=== PATIENT | female | born 1965 | race Hispanic/Latino ===

== ENCOUNTER 2017-12-17 08:49 | Inpatient (IN) | payer MEDICAID ==
[2017-12-13 11:14] VITALS: BP 100/87
[2017-12-13 11:14] LABS: CREATININE 0.7 mg/dL (0.5-1.5); POTASSIUM 3.6 mmol/L (3.5-5.1)
[2017-12-13 11:16] LABS: BASOPHILS % (AUTO) 0.5 % (0.0-5.0); EOSINOPHILS % (AUTO) 0.8 % (0.0-8.0); HEMATOCRIT 38.8 % (36-48); LYMPHOCYTES % (AUTO) 36.2 % (21.0-51.0); MEAN CORPUSCULAR HEMOGLOBIN 31.7 pg (27.0-33.0); MEAN CORPUSCULAR HGB CONC 33.5 g/dL (32.0-36.0); MEAN CORPUSCULAR VOLUME 94.5 fL (79-99); MONOCYTES % (AUTO) 8.4 % (3.0-13.0); NEUTROPHILS % (AUTO) 54.1 % (40.0-77.0); PLATELET COUNT (AUTO) 258 K/uL (130-400); RED CELL DISTRIBUTION WIDTH 15.2 % (11.0-15.5); WHITE BLOOD COUNT (AUTO) 5.6 K/uL (4.8-10.8)
[2017-12-13 11:43] LABS: INR 0.98 (0.85-1.15); PARTIAL THROMBOPLASTIN TIME 24.2 SEC (26.3-35.5); PROTHROMBIN TIME 10.3 SEC (9.6-11.6)
[2017-12-14] MEDS: CEFAZOLIN SODIUM 1 GM VIAL IVP SCH (10:00)
[~2017-12-17] VITALS: Ht 157.5 cm; Wt 102.1 kg
[2017-12-17] VITALS (20 sets, daily range): BP systolic 119–183; BP diastolic 68–94
[~2017-12-17 08:49] MED LIST: ATOR20TA65 PO; DOCU100C19 PO; ESOM40CA PO; FENT100PAT TD; HYDR15SO7 PO; LORA1TAB3 PO; PRAM0.5T3 PO; PREG75 PO; TIZA4TAB4 PO; ZOLP10TA2 PO
[2017-12-17] MEDS ORDERED: LACTATED RINGERS 1000ML 1,000 ML IV ONE ×2 (09:07→14:37)
[2017-12-17] MEDS: CEFAZOLIN SODIUM 1 GM VIAL IVP SCH ×2 (10:20→18:01)
[2017-12-17] MEDS ORDERED: NEOSTIGMINE METHYLSULFATE 1MG/ML IV ONE (10:24)
[2017-12-17] MEDS ORDERED: DEXAMETHASONE SOD PHOSPHATE 10MG/ML 1ML VIAL ONE (10:24)
[2017-12-17] MEDS ORDERED: GLYCOPYRROLATE 0.2 MG/ML 5 ML VIAL ONE (10:24)
[2017-12-17] MEDS ORDERED: ONDANSETRON HCL 4 MG/2 ML VIAL ONE (10:24)
[2017-12-17] MEDS ORDERED: SUCCINYLCHOLINE 200MG/10ML SYR ONE (10:24)
[2017-12-17] MEDS ORDERED: MIDAZOLAM HCL 1 MG/ML 2ML VIAL ONE ×2 (10:24→12:57)
[2017-12-17] MEDS ORDERED: LIDOCAINE PF 2% 5ML ABBOJECT ONE (10:24)
[2017-12-17] MEDS ORDERED: FENTANYL CITRATE PF 50 MCG/1 ML 2ML VIAL ONE (10:25)
[2017-12-17] MEDS ORDERED: PROPOFOL 10 MG/ML 20ML VIAL IV ONE ×2 (10:25→11:34)
[2017-12-17] MEDS ORDERED: MEPERIDINE-PF 50 MG/ML SYG ONE ×2 (12:53→13:29)
[2017-12-17] MEDS ORDERED: MORPHINE SULFATE 10 MG/ML 1ML SYG ONE (13:08)
[2017-12-17] MEDS ORDERED: PROMETHAZINE HCL 25 MG/ML 1ML AMPULE IM ONE (13:30)
[2017-12-17] MEDS ORDERED: HYDROMORPHONE PCA 10 MG/50 ML 50 ML IV ONE (14:54)
[2017-12-17] MEDS ORDERED: ONDANSETRON HCL 4 MG/2 ML VIAL IVP PRN (15:15)
[2017-12-17] MEDS: LACTATED RINGERS 1000ML 1,000 ML IV SCH ×2 (15:15→21:48)
[2017-12-17] MEDS ORDERED: MORPHINE SULFATE 4 MG/1ML SYG IVP PRN (15:15)
[2017-12-17] MEDS: HYDROMORPHONE PCA 10MG/50 ML ( 0.2 MG/ML ) IV PRN (15:15)
[2017-12-17] MEDS ORDERED: NALOXONE HCL 0.4 MG/1 ML ML IVP PRN (15:15)
[2017-12-17] MEDS ORDERED: FENTANYL 100 MCG/HR PATCH TD SCH (15:30)
[2017-12-17] MEDS ORDERED: TIZANIDINE HCL 2 MG TABLET PO PRN (15:30)
[2017-12-17] MEDS ORDERED: HYDROCODONE/ACETAMINOPHEN 7.5/325 MG 15 ML UDCUP PO PRN (15:30)
[2017-12-17] MEDS: PREGABALIN 75 MG CAPSULE PO SCH (20:15)
[2017-12-17] MEDS: DOCUSATE SODIUM 100 MG CAP PO SCH (20:16)
[2017-12-17] MEDS: LORAZEPAM 1 MG TABLET PO SCH (20:16)
[2017-12-17] MEDS ORDERED: ZOLPIDEM TARTRATE 5 MG TAB PO SCH (21:00)
[2017-12-17] MEDS ORDERED: ATORVASTATIN CALCIUM 20 MG TABLET PO SCH (21:00)
[2017-12-17] MEDS ORDERED: PRAMIPEXOLE DI-HCL 0.25 MG TABLET PO SCH (21:00)
[2017-12-18] MEDS: CEFAZOLIN SODIUM 1 GM VIAL IVP SCH (02:06)
[2017-12-18] MEDS: HYDROMORPHONE PCA 10MG/50 ML ( 0.2 MG/ML ) IV PRN (02:50)
[2017-12-18 03:25] VITALS: BP 142/78
[2017-12-18] MEDS: LACTATED RINGERS 1000ML 1,000 ML IV SCH (07:15)
[2017-12-18 07:54] VITALS: BP 128/80
[2017-12-18] MEDS ORDERED: PANTOPRAZOLE SODIUM 40 MG TABLET.DR PO SCH (09:00)
[2017-12-18] MEDS ORDERED: LEVOFLOXACIN 750 MG TABLET PO SCH (09:00)
[2017-12-18] MEDS: DOCUSATE SODIUM 100 MG CAP PO SCH (09:31)
[2017-12-18] MEDS: LORAZEPAM 1 MG TABLET PO SCH (09:31)
[2017-12-18] MEDS: PREGABALIN 75 MG CAPSULE PO SCH (09:32)
[2017-12-18 11:25] VITALS: BP 127/87
== END 2017-12-18 15:30 | disposition home or self-care (01) | DRG 364 ==
LOC: DAH 08:49 → DAHIP 08:50 → DAH 08:50 → 4AH 14:00 → 4BH 14:48
PROVIDERS: ADMIT Surgery; ATTEND Surgery
PROC: 0W0F0ZZ Alteration of Abdominal Wall, Open Approach (ICD-10-PCS; principal; 2017-12-17 10:25)
DX: M79.3 Panniculitis, unspecified (principal); E66.01 Morbid (severe) obesity due to excess calories; E11.9 Type 2 diabetes mellitus without complications; Z79.899 Other long term (current) drug therapy; Z90.49 Acquired absence of other specified parts of digestive tract; Z98.51 Tubal ligation status; Z98.84 Bariatric surgery status; Z68.41 Body mass index [BMI] 40.0-44.9, adult
CPT/HCPCS: 36415; 80048; 84703; 85025; 85610; 85730; 86850; 86900; 86901; A4218; A4344; J0330; J0690; J1100; J1170; J2001; J2175; J2250; J2270; J2405; J2550; J2704; J2710; J3010; J3490; J7120

== ENCOUNTER 2018-01-18 15:20 | Inpatient (IN) | payer MEDICAID ==
[~2018-01-18] VITALS: Ht 157.5 cm; Wt 100.0 kg
[2018-01-18 16:37] LABS: BASOPHILS % (AUTO) 0.2 % (0.0-5.0); EOSINOPHILS % (AUTO) 1.6 % (0.0-8.0); HEMATOCRIT 29.5 % (36-48); LYMPHOCYTES % (AUTO) 13.5 % (21.0-51.0); MEAN CORPUSCULAR HEMOGLOBIN 29.3 pg (27.0-33.0); MEAN CORPUSCULAR HGB CONC 33.8 g/dL (32.0-36.0); MEAN CORPUSCULAR VOLUME 86.7 fL (79-99); MONOCYTES % (AUTO) 7.4 % (3.0-13.0); NEUTROPHILS % (AUTO) 77.3 % (40.0-77.0); PLATELET COUNT (AUTO) 450 K/uL (130-400); RED CELL DISTRIBUTION WIDTH 15.9 % (11.0-15.5); WHITE BLOOD COUNT (AUTO) 9.4 K/uL (4.8-10.8)
[2018-01-18 16:51] LABS: CARBON DIOXIDE 31 mmol/L (21-32); CHLORIDE 103 mmol/L (101-111); CREATININE 0.6 mg/dL (0.5-1.5); GLOMERULAR FILTR. RATE CALC 111 mL/min (>60); GLUCOSE,RANDOM 118 mg/dL (70-105); POTASSIUM 3.3 mmol/L (3.5-5.1); SODIUM SERUM 141 mmol/L (136-145); UREA NITROGEN, BLOOD 10 mg/dL (7-18)
[2018-01-18 16:53] LABS: INR 0.95 (0.85-1.15); PARTIAL THROMBOPLASTIN TIME 31.8 SEC (26.3-35.5)
[2018-01-18] MEDS ORDERED: ONDANSETRON HCL MDV 20ML 2 MG/ML VIAL ONE (16:54)
[2018-01-18] MEDS ORDERED: SODIUM CHLORIDE 0.9% 1000ML 3,000 ML IV ONE (16:54)
[2018-01-18] MEDS ORDERED: MORPHINE SULFATE 4 MG/1ML SYG ONE (16:55)
[2018-01-18] MEDS ORDERED: KETOROLAC TROMETHAMINE 30MG/ML ONE (16:55)
[2018-01-18 17:08] LABS: ALANINE AMINOTRANSFERASE 16 U/L (12-78); ALBUMIN 2.8 g/dL (3.5-5.0); ASPARTATE AMINOTRANSFERASE 18 U/L (10-37); BILIRUBIN,TOTAL 0.4 mg/dL (0.2-1.0); CREATINE KINASE MB < 0.5 ng/mL (0.5-3.6); CREATINE KINASE, TOTAL 42 U/L (21-232); MYOGLOBIN 15 ng/mL (10-92); TOTAL PROTEIN, SERUM 7.9 g/dL (6.0-8.3); TROPONIN I < 0.04 ng/mL (0.00-0.06)
[2018-01-18] MEDS ORDERED: MEROPENEM 1 GM VIAL ONE (17:09)
[2018-01-18] MEDS ORDERED: SODIUM CHLORIDE 0.9% 50 ML IV ONE (17:10)
[2018-01-18] MEDS ORDERED: POTASSIUM BICARB/CIT AC 25 MEQ TABLET.EFF ONE (17:10)
[2018-01-18] MEDS ORDERED: IOPAMIDOL-370 75 ML VIAL IV ONE (18:35)
[2018-01-18 20:36] LABS: APPEARANCE,URINE Clear (CLEAR); BILIRUBIN,URINE Negative (NEGATIVE); COLOR,URINE Yellow (YELLOW); GLUCOSE, URINE (UA) Negative (NEGATIVE); KETONES,URINE Negative (NEGATIVE); LEUKOCYTE ESTERASE ,URINE Small (NEGATIVE); NITRATE,URINE Negative (NEGATIVE); OCCULT BLOOD,URINE Negative (NEGATIVE); PH,URINE 6.5 (5.0-8.0); PROTEIN,URINE Negative (NEGATIVE)
[2018-01-18 20:43] LABS: BACTERIA,URINE None Seen /HPF (None Seen); RBC,URINE None Seen /HPF (0-1); WBC,URINE 0-1 /HPF (0-1)
[2018-01-18 23:20] VITALS: BP 126/68
[2018-01-18] MEDS ORDERED: LACTATED RINGERS 1000ML 1,000 ML IV SCH (23:45)
[2018-01-18] MEDS ORDERED: ONDANSETRON HCL 4 MG/2 ML VIAL IVP PRN (23:45)
[2018-01-19] VITALS (21 sets, daily range): BP systolic 111–153; BP diastolic 59–86
[2018-01-19] MEDS ORDERED: PIPERACILLIN SODIUM/TAZOBACTAM 3.375 GM VIAL IV SCH
[2018-01-19] MEDS: ZOLPIDEM TARTRATE 5 MG TAB PO PRN (00:13)
[2018-01-19] MEDS: MORPHINE SULFATE 4 MG/1ML SYG IVP PRN ×3 (00:30→08:20)
[2018-01-19] MEDS: MEROPENEM 1 GM VIAL IVP SCH ×3 (01:18→17:33)
[2018-01-19] MEDS ORDERED: ONDANSETRON HCL MDV 20ML 2 MG/ML VIAL IVP PRN (08:30)
[2018-01-19] MEDS ORDERED: SCOPOLAMINE HYDROBROMIDE 1 EACH ADH..PATCH TD ONE (10:59)
[2018-01-19] MEDS ORDERED: GLYCOPYRROLATE 0.2 MG/ML 5 ML VIAL ONE (11:12)
[2018-01-19] MEDS ORDERED: DEXAMETHASONE SOD PHOSPHATE 10MG/ML 1ML VIAL ONE (11:12)
[2018-01-19] MEDS ORDERED: SUCCINYLCHOLINE 200MG/10ML SYR ONE (11:13)
[2018-01-19] MEDS ORDERED: FENTANYL CITRATE PF 50 MCG/1 ML 2ML VIAL ONE (11:13)
[2018-01-19] MEDS ORDERED: MIDAZOLAM HCL 1 MG/ML 2ML VIAL ONE (11:13)
[2018-01-19] MEDS ORDERED: LIDOCAINE PF 2% 5ML ABBOJECT ONE (11:13)
[2018-01-19] MEDS ORDERED: PROPOFOL 10 MG/ML 20ML VIAL IV ONE ×2 (11:13→12:10)
[2018-01-19] MEDS ORDERED: ONDANSETRON HCL 4 MG/2 ML VIAL IVP PRN (12:00)
[2018-01-19] MEDS ORDERED: HYDROCODONE/ACETAMINOPHEN 5/325 MG TAB PO PRN (12:00)
[2018-01-19] MEDS ORDERED: IPRATROPIUM/ALBUTEROL SULFATE 3 ML SOLUTION IH ONE (12:30)
[2018-01-19] MEDS: MEPERIDINE-PF 25 MG/ML SYG IV PRN ×2 (12:39→12:59)
[2018-01-19] MEDS ORDERED: ZOSYN 3.375GM+NS 50ML 50 ML IV SCH (13:00)
[2018-01-19] MEDS ORDERED: BACL10TA PO (15:49)
[2018-01-19] MEDS ORDERED: LORA1TAB3 PO (15:49)
[2018-01-19] MEDS ORDERED: IBUP-2070 PO (15:49)
[2018-01-19] MEDS ORDERED: PREG75 PO (15:49)
[2018-01-19] MEDS: LACTATED RINGERS 1000ML 1,000 ML IV SCH (20:17)
[2018-01-20] VITALS (7 sets, daily range): BP systolic 95–112; BP diastolic 52–62
[2018-01-20] MEDS: MEROPENEM 1 GM VIAL IVP SCH ×3 (00:24→16:59)
[2018-01-20] MEDS: MORPHINE SULFATE 4 MG/1ML SYG IVP PRN ×4 (00:26→19:55)
[2018-01-20 05:37] LABS: BASOPHILS % (AUTO) 0.2 % (0.0-5.0); MEAN CORPUSCULAR HEMOGLOBIN 29.7 pg (27.0-33.0); MEAN CORPUSCULAR HGB CONC 34.3 g/dL (32.0-36.0); MEAN CORPUSCULAR VOLUME 86.5 fL (79-99); MONOCYTES % (AUTO) 6.7 % (3.0-13.0); NEUTROPHILS % (AUTO) 81.1 % (40.0-77.0); PLATELET COUNT (AUTO) 396 K/uL (130-400); RED BLOOD CELL COUNT(AUTO) 2.89 MIL/uL (4.00-5.50); RED CELL DISTRIBUTION WIDTH 16.2 % (11.0-15.5); WHITE BLOOD COUNT (AUTO) 7.8 K/uL (4.8-10.8)
[2018-01-20] MEDS: LACTATED RINGERS 1000ML 1,000 ML IV SCH ×4 (08:56→11:27)
[2018-01-20] MEDS: MEPERIDINE-PF 25 MG/ML SYG IV PRN ×3 (08:56→08:58)
[2018-01-20] MEDS: ZOLPIDEM TARTRATE 5 MG TAB PO PRN (21:04)
[2018-01-21] MEDS: MEROPENEM 1 GM VIAL IVP SCH ×2 (00:43→09:58)
[2018-01-21 03:00] VITALS: BP 104/48
[2018-01-21 06:18] LABS: BASOPHILS % (AUTO) 0.3 % (0.0-5.0); EOSINOPHILS % (AUTO) 0.4 % (0.0-8.0); HEMATOCRIT 24.7 % (36-48); LYMPHOCYTES % (AUTO) 22.3 % (21.0-51.0); MEAN CORPUSCULAR HEMOGLOBIN 28.1 pg (27.0-33.0); MEAN CORPUSCULAR HGB CONC 32.6 g/dL (32.0-36.0); MEAN CORPUSCULAR VOLUME 86.1 fL (79-99); MONOCYTES % (AUTO) 7.5 % (3.0-13.0); NEUTROPHILS % (AUTO) 69.5 % (40.0-77.0); PLATELET COUNT (AUTO) 427 K/uL (130-400); RED BLOOD CELL COUNT(AUTO) 2.87 MIL/uL (4.00-5.50); RED CELL DISTRIBUTION WIDTH 16.3 % (11.0-15.5)
[2018-01-21 09:11] VITALS: BP 90/48
[2018-01-21 12:46] VITALS: BP 111/61
== END 2018-01-21 15:09 | disposition home health service (06) | DRG 364 ==
LOC: EDH 15:20 → OBSVTOIN 15:21 → 4CH 15:21 → INTOOBSV 15:21
PROVIDERS: ADMIT Surgery; ATTEND Surgery
PROC: 0W9F0ZZ Drainage of Abdominal Wall, Open Approach (ICD-10-PCS; principal; 2018-01-19 11:30)
DX: L02.211 Cutaneous abscess of abdominal wall (principal); E66.01 Morbid (severe) obesity due to excess calories; E78.5 Hyperlipidemia, unspecified; Z68.41 Body mass index [BMI] 40.0-44.9, adult
CPT/HCPCS: 36415; 71045; 74177; 80053; 81001; 82550; 82553; 83605; 83874; 84484; 85025; 85610; 85730; 87040; 87070; 87076; 87088; 87186; 87205; 93005; A4218; J0330; J1100; J1885; J2001; J2175; J2185; J2250; J2270; J2543; J2704; J3010; J3490; J7030; J7120; Q9967

== ENCOUNTER 2018-04-03 12:43 | Observation (INO) | payer MEDICAID ==
[~2018-04-03 12:43] MED LIST changes: +BACL10TA PO; +IBUP-2070 PO
[2018-04-03 13:28] LABS: BASOPHILS % (AUTO) 0.5 % (0.0-5.0); HEMATOCRIT 29.2 % (36-48); LYMPHOCYTES % (AUTO) 33.9 % (21.0-51.0); MEAN CORPUSCULAR HGB CONC 32.2 g/dL (32.0-36.0); MEAN CORPUSCULAR VOLUME 74.4 fL (79-99); MONOCYTES % (AUTO) 6.8 % (3.0-13.0); NEUTROPHILS % (AUTO) 56.8 % (40.0-77.0); NUCLEATED RED BLOOD CELLS 0.1 % (0.0-0.19); PLATELET COUNT (AUTO) 344 K/uL (130-400); RED BLOOD CELL COUNT(AUTO) 3.93 MIL/uL (4.00-5.50); RED CELL DISTRIBUTION WIDTH 17.4 % (11.0-15.5); WHITE BLOOD COUNT (AUTO) 5.9 K/uL (4.8-10.8)
[2018-04-03 13:37] LABS: CREATININE 0.6 mg/dL (0.5-1.5); POTASSIUM 3.6 mmol/L (3.5-5.1)
[2018-04-03 13:43] LABS: ALBUMIN 3.3 g/dL (3.5-5.0); BILIRUBIN,TOTAL 0.1 mg/dL (0.2-1.0); TOTAL PROTEIN, SERUM 7.9 g/dL (6.0-8.3)
[2018-04-03] MEDS ORDERED: IOPAMIDOL-370 75 ML VIAL IV ONE (13:45)
[2018-04-03] MEDS ORDERED: HYDROCODONE/ACETAMINOPHEN 10/325 MG TAB ONE (14:12)
[2018-04-03] MEDS ORDERED: AMPICILLIN SODIUM/SULBACTAM NA 1.5GM VIAL ONE (16:01)
[2018-04-03] MEDS ORDERED: VANCOMYCIN 1GM+NS 250ML 250 ML IV ONE (17:55)
[2018-04-03] MEDS ORDERED: MORPHINE SULFATE 2 MG/ML 1ML SYG ONE (18:02)
[2018-04-03] MEDS ORDERED: ONDANSETRON HCL 4 MG/2 ML VIAL ONE (18:02)
== END 2018-04-03 18:25 | disposition home or self-care (01) ==
LOC: EDH 12:43 → EDHIP 12:44
PROVIDERS: ADMIT Family Medicine; ATTEND Family Medicine
DX: G89.18 Other acute postprocedural pain (principal); E66.01 Morbid (severe) obesity due to excess calories; E78.5 Hyperlipidemia, unspecified; F41.9 Anxiety disorder, unspecified; G89.29 Other chronic pain; Z80.3 Family history of malignant neoplasm of breast; Z82.0 Family history of epilepsy and other diseases of the nervous system; Z82.3 Family history of stroke; Z82.5 Family history of asthma and other chronic lower respiratory diseases; Z83.3 Family history of diabetes mellitus; Z90.49 Acquired absence of other specified parts of digestive tract; Z98.84 Bariatric surgery status
CPT/HCPCS: 36415; 74177; 80053; 85025; 99285; G0378 ×6; J0295; J2405; J3370; Q9967

== ENCOUNTER 2018-04-11 07:15 | Observation (INO) | payer MEDICAID ==
[2018-04-10 14:09] VITALS: BP 140/80
[2018-04-10 15:09] LABS: BASOPHILS % (AUTO) 0.6 % (0.0-5.0); EOSINOPHILS % (AUTO) 2.7 % (0.0-8.0); HEMATOCRIT 30.6 % (36-48); MEAN CORPUSCULAR HEMOGLOBIN 23.7 pg (27.0-33.0); MEAN CORPUSCULAR HGB CONC 31.5 g/dL (32.0-36.0); MEAN CORPUSCULAR VOLUME 75.4 fL (79-99); MONOCYTES % (AUTO) 5.6 % (3.0-13.0); NEUTROPHILS % (AUTO) 66.1 % (40.0-77.0); NUCLEATED RED BLOOD CELLS 0.1 % (0.0-0.19); PLATELET COUNT (AUTO) 368 K/uL (130-400); RED BLOOD CELL COUNT(AUTO) 4.06 MIL/uL (4.00-5.50); RED CELL DISTRIBUTION WIDTH 18.1 % (11.0-15.5); WHITE BLOOD COUNT (AUTO) 7.5 K/uL (4.8-10.8)
[2018-04-10 15:17] LABS: CREATININE 0.7 mg/dL (0.5-1.5); POTASSIUM 3.8 mmol/L (3.5-5.1)
[~2018-04-11] VITALS: Ht 160 cm; Wt 93.1 kg
[2018-04-11] VITALS (25 sets, daily range): BP systolic 104–132; BP diastolic 45–78
[~2018-04-11 07:15] MED LIST changes: -BACL10TA PO; +CEFAZOLIN SODIUM 1 GM VIAL IVP SCH
[2018-04-11] MEDS ORDERED: SODIUM CHLORIDE 0.9% 1000ML 1,000 ML IV ONE (07:57)
[2018-04-11] MEDS ORDERED: DEXAMETHASONE SOD PHOSPHATE 10MG/ML 1ML VIAL ONE (07:58)
[2018-04-11] MEDS ORDERED: GLYCOPYRROLATE 0.2 MG/ML 5 ML VIAL ONE (07:58)
[2018-04-11] MEDS ORDERED: NEOSTIGMINE 5MG/5ML SYR IV ONE (07:58)
[2018-04-11] MEDS ORDERED: ONDANSETRON HCL 4 MG/2 ML VIAL ONE (07:58)
[2018-04-11] MEDS ORDERED: LIDOCAINE PF 2% 5ML ABBOJECT ONE (07:58)
[2018-04-11] MEDS ORDERED: PROPOFOL 10 MG/ML 20ML VIAL IV ONE (07:59)
[2018-04-11] MEDS ORDERED: MIDAZOLAM HCL 1 MG/ML 2ML VIAL ONE (07:59)
[2018-04-11] MEDS ORDERED: FENTANYL CITRATE PF 50 MCG/1 ML 2ML VIAL ONE (07:59)
[2018-04-11] MEDS ORDERED: ACETAMINOPHEN 325 MG TAB PO PRN (09:00)
[2018-04-11] MEDS: ENOXAPARIN SODIUM 40 MG/0.4 ML SYRINGE SQ SCH (09:00)
[2018-04-11] MEDS ORDERED: INSULIN HUMULIN R 100 UNIT/ML 3ML SQ PRN (09:00)
[2018-04-11] MEDS ORDERED: ONDANSETRON HCL 4 MG/2 ML VIAL IVP PRN (09:00)
[2018-04-11] MEDS ORDERED: MEPERIDINE-PF 25 MG/ML SYG ONE ×2 (09:04→09:30)
[2018-04-11] MEDS: PANTOPRAZOLE SODIUM 40 MG TABLET.DR PO SCH (09:11)
[2018-04-11] MEDS ORDERED: LORAZEPAM 1 MG TABLET PO PRN (09:15)
[2018-04-11] MEDS: HYDROCODONE/ACETAMINOPHEN 7.5/325 MG 15 ML UDCUP PO PRN ×2 (12:02→18:35)
[2018-04-11] MEDS: IBUPROFEN 600 MG TABLET PO PRN (17:48)
[2018-04-11] MEDS ORDERED: FENTANYL 100 MCG/HR PATCH TD SCH (18:45)
[2018-04-11] MEDS: PREGABALIN 75 MG CAPSULE PO SCH (20:16)
[2018-04-11] MEDS: MORPHINE SULFATE 2 MG/ML 1ML SYG IVP PRN (20:30)
[2018-04-11] MEDS ORDERED: TIZANIDINE HCL 2 MG TABLET PO SCH (21:00)
[2018-04-11] MEDS ORDERED: ATORVASTATIN CALCIUM 20 MG TABLET PO SCH (21:00)
[2018-04-11] MEDS ORDERED: ZOLPIDEM TARTRATE 5 MG TAB PO SCH (21:00)
[2018-04-11] MEDS ORDERED: PRAMIPEXOLE DI-HCL 0.25 MG TABLET PO SCH (21:00)
[2018-04-12 00:09] VITALS: BP 107/66
[2018-04-12] MEDS: MORPHINE SULFATE 2 MG/ML 1ML SYG IVP PRN ×3 (02:22→14:22)
[2018-04-12 03:55] VITALS: BP 112/64
[2018-04-12 05:51] LABS: BASOPHILS % (AUTO) 0.7 % (0.0-5.0); EOSINOPHILS % (AUTO) 2.4 % (0.0-8.0); HEMATOCRIT 26.3 % (36-48); MEAN CORPUSCULAR HEMOGLOBIN 24.3 pg (27.0-33.0); MEAN CORPUSCULAR HGB CONC 32.6 g/dL (32.0-36.0); MEAN CORPUSCULAR VOLUME 74.6 fL (79-99); MONOCYTES % (AUTO) 7.9 % (3.0-13.0); PLATELET COUNT (AUTO) 297 K/uL (130-400); RED BLOOD CELL COUNT(AUTO) 3.53 MIL/uL (4.00-5.50); WHITE BLOOD COUNT (AUTO) 6.6 K/uL (4.8-10.8)
[2018-04-12 06:01] LABS: CREATININE 0.6 mg/dL (0.5-1.5); POTASSIUM 3.9 mmol/L (3.5-5.1)
[2018-04-12 08:02] VITALS: BP 132/83
[2018-04-12] MEDS ORDERED: DOCUSATE SODIUM 100 MG CAP PO SCH (09:00)
[2018-04-12] MEDS: PANTOPRAZOLE SODIUM 40 MG TABLET.DR PO SCH (09:24)
[2018-04-12] MEDS: IBUPROFEN 600 MG TABLET PO PRN (09:24)
[2018-04-12] MEDS: PREGABALIN 75 MG CAPSULE PO SCH (09:25)
[2018-04-12] MEDS: ENOXAPARIN SODIUM 40 MG/0.4 ML SYRINGE SQ SCH (09:27)
[2018-04-12 11:36] VITALS: BP 137/72
== END 2018-04-12 15:18 | disposition home health service (06) ==
LOC: DAH 07:15 → DAHIP 07:16 → 4CH 11:42
PROVIDERS: ADMIT Surgery; ATTEND Surgery
DX: T81.4XXA Infection following a procedure, initial encounter (principal); L02.211 Cutaneous abscess of abdominal wall; G89.29 Other chronic pain; Z79.899 Other long term (current) drug therapy; E11.9 Type 2 diabetes mellitus without complications; Z90.49 Acquired absence of other specified parts of digestive tract; Y92.89 Other specified places as the place of occurrence of the external cause
CPT/HCPCS: 10060; 36415 ×2; 80048 ×2; 82948 ×7; 85025 ×2; 87070; 87076; 96372; 96374; 96376; A4218; A4452; G0378 ×32; J0690; J1100; J1650; J2001; J2175 ×2; J2250; J2405; J2704; J2710; J3010; J3490; J7030 ×2

== ENCOUNTER 2018-11-25 12:25 | Emergency (ER) | payer MEDICAID ==
[~2018-11-25 12:25] MED LIST changes: -CEFAZOLIN SODIUM 1 GM VIAL IVP SCH; +DOCU-282 PO; -DOCU100C19 PO
[2018-11-25] MEDS ORDERED: KETOROLAC TROMETHAMINE 30MG/ML ONE (12:50)
[2018-11-25 12:57] LABS: BASOPHILS % (AUTO) 0.7 % (0.0-5.0); EOSINOPHILS % (AUTO) 0.5 % (0.0-8.0); HEMATOCRIT 34.5 % (36-48); LYMPHOCYTES % (AUTO) 28.8 % (21.0-51.0); MEAN CORPUSCULAR HEMOGLOBIN 25.3 pg (27.0-33.0); MEAN CORPUSCULAR HGB CONC 32.8 g/dL (32.0-36.0); MEAN CORPUSCULAR VOLUME 76.9 fL (79-99); PLATELET COUNT (AUTO) 309 K/uL (130-400); RED BLOOD CELL COUNT(AUTO) 4.48 MIL/uL (4.00-5.50); RED CELL DISTRIBUTION WIDTH 17.8 % (11.0-15.5); WHITE BLOOD COUNT (AUTO) 5.8 K/uL (4.8-10.8)
[2018-11-25 13:04] LABS: CREATININE 0.8 mg/dL (0.5-1.5); POTASSIUM 3.3 mmol/L (3.5-5.1)
[2018-11-25 13:10] LABS: ALBUMIN 4.3 g/dL (3.5-5.0); BILIRUBIN,TOTAL 0.4 mg/dL (0.2-1.0); TOTAL PROTEIN, SERUM 8.4 g/dL (6.0-8.3)
[2018-11-25] MEDS ORDERED: ONDANSETRON HCL 4 MG/2 ML VIAL ONE (13:44)
[2018-11-25] MEDS ORDERED: SODIUM CHLORIDE 0.9% 1000ML 0 ML IV ONE (13:44)
[2018-11-25] MEDS ORDERED: MORPHINE SULFATE 4 MG/1ML SYG ONE (13:45)
== END 2018-11-25 14:11 | disposition left against medical advice (07) ==
LOC: EDH 12:25
DX: R68.83 Chills (without fever) (principal); R10.11 Right upper quadrant pain; R10.12 Left upper quadrant pain; M79.10 Myalgia, unspecified site; E78.5 Hyperlipidemia, unspecified; Z98.51 Tubal ligation status; Z90.49 Acquired absence of other specified parts of digestive tract; Z98.890 Other specified postprocedural states
CPT/HCPCS: 36415; 80053; 85025; 87804 ×2; 96374; 99283; J1885; J2270; J2405; J7030

== ENCOUNTER → 2019-01-03 | Outpatient (CLI) | payer MEDICAID | END | disposition home or self-care (01) | LOC: RAH 11:14 | PROVIDERS: ATTEND Family Medicine | DX: K43.9 Ventral hernia without obstruction or gangrene (principal); M47.815 Spondylosis without myelopathy or radiculopathy, thoracolumbar region; I70.90 Unspecified atherosclerosis; Z98.84 Bariatric surgery status | CPT/HCPCS: 74150 ==

== ENCOUNTER 2020-04-25 03:55 | Emergency (ER) | payer MEDICARE ==
[~2020-04-25 03:55] MED LIST changes: -TIZA4TAB4 PO; +TIZA4TAB5 PO
[2020-04-25] MEDS ORDERED: KETOROLAC TROMETHAMINE 30MG/ML ONE (04:43)
[2020-04-25] MEDS ORDERED: CLINDAMYCIN 900 MG/D5% WATER 50 ML IV ONE (04:43)
[2020-04-25] MEDS ORDERED: LIDOCAINE HCL 2% JELLY 5 ML ONE (04:43)
== END 2020-04-25 05:39 | disposition home or self-care (01) ==
LOC: EDH 03:55
DX: K04.7 Periapical abscess without sinus (principal); E78.5 Hyperlipidemia, unspecified
CPT/HCPCS: 96365; 96375; 99284; J1885; J3490

== ENCOUNTER 2020-11-12 23:57 | Emergency (ER) | payer MEDICARE ==
[~2020-11-12 23:57] MED LIST changes: +LEVO750T46 PO
[2020-11-13 00:35] LABS: CARBON DIOXIDE 25 mmol/L (21-32); CHLORIDE 108 mmol/L (101-111); CREATININE 0.7 mg/dL (0.5-1.5); GLOMERULAR FILTR. RATE CALC 92 mL/min (>60); GLUCOSE,RANDOM 124 mg/dL (70-105); POTASSIUM 3.3 mmol/L (3.5-5.1); SODIUM SERUM 145 mmol/L (136-145); UREA NITROGEN, BLOOD 9 mg/dL (7-18)
[2020-11-13 00:39] LABS: ACETAMINOPHEN 4 mcg/mL (10-30); ALANINE AMINOTRANSFERASE 28 U/L (12-78); ALBUMIN 3.4 g/dL (3.5-5.0); ALCOHOL, BLOOD 172 mg/dL (0-10); ASPARTATE AMINOTRANSFERASE 39 U/L (10-37); BILIRUBIN,TOTAL 0.1 mg/dL (0.2-1.0); TOTAL PROTEIN, SERUM 7.2 g/dL (6.0-8.3)
[2020-11-13 00:40] LABS: SALICYLATE < 2.8 mg/dL (2.8-20.0)
[2020-11-13 00:41] LABS: BASOPHILS % (AUTO) 0.7 % (0.0-5.0); EOSINOPHILS % (AUTO) 3.5 % (0.0-8.0); HEMATOCRIT 35.2 % (36-48); LYMPHOCYTES % (AUTO) 29.9 % (21.0-51.0); MEAN CORPUSCULAR HEMOGLOBIN 33.1 pg (27.0-33.0); MEAN CORPUSCULAR HGB CONC 34.1 g/dL (32.0-36.0); MONOCYTES % (AUTO) 7.7 % (3.0-13.0); NEUTROPHILS % (AUTO) 57.7 % (40.0-77.0); PLATELET COUNT (AUTO) 222 K/uL (130-400); RED BLOOD CELL COUNT(AUTO) 3.63 MIL/uL (4.00-5.50); RED CELL DISTRIBUTION WIDTH 13.7 % (11.0-15.5)
[2020-11-13 01:43] LABS: AMPHET/METH SCREEN,URINE NEGATIVE (NEGATIVE); BARBITURATE SCREEN, URINE NEGATIVE (NEGATIVE); BENZODIAZEPINES SCREEN,URINE NEGATIVE (NEGATIVE); CANNABINOID SCREEN,URINE NEGATIVE (NEGATIVE); COCAINE SCREEN,URINE NEGATIVE (NEGATIVE); OPIATE SCREEN,URINE NEGATIVE (NEGATIVE); PHENCYCLIDINE SCREEN,URINE NEGATIVE (NEGATIVE)
[2020-11-13 06:34] LABS: ALCOHOL, BLOOD 48 mg/dL (0-10)
[2020-11-13 06:36] LABS: ACETAMINOPHEN < 1 mcg/mL (10-30)
== END 2020-11-13 11:01 | disposition home or self-care (01) ==
LOC: EDH 23:57
DX: F32.89 Other specified depressive episodes (principal); T42.4X2A Poisoning by benzodiazepines, intentional self-harm, initial encounter; F10.129 Alcohol abuse with intoxication, unspecified; E78.5 Hyperlipidemia, unspecified; Z90.49 Acquired absence of other specified parts of digestive tract; Z79.899 Other long term (current) drug therapy; Y92.098 Other place in other non-institutional residence as the place of occurrence of the external cause
CPT/HCPCS: 36415; 80053; 80305; 84484; 85025; 93005; 99285; G0481

== ENCOUNTER 2021-03-04 23:55 | Emergency (ER) | payer MEDICARE ==
[2021-03-05] MEDS ORDERED: KETAMINE HCL 100 MG/ML 5ML VIAL IJ ONE (00:30)
[2021-03-05] MEDS ORDERED: KETOROLAC TROMETHAMINE 60 MG/2 ML VIAL ONE (01:33)
== END 2021-03-05 02:14 | disposition home or self-care (01) ==
LOC: EDH 23:55
DX: S52.501A Unspecified fracture of the lower end of right radius, initial encounter for closed fracture (principal); S52.601A Unspecified fracture of lower end of right ulna, initial encounter for closed fracture; F10.129 Alcohol abuse with intoxication, unspecified; E78.5 Hyperlipidemia, unspecified; Z90.49 Acquired absence of other specified parts of digestive tract; W18.39XA Other fall on same level, initial encounter; Y93.89 Activity, other specified; Y92.098 Other place in other non-institutional residence as the place of occurrence of the external cause; Y99.8 Other external cause status; Y90.9 Presence of alcohol in blood, level not specified
CPT/HCPCS: 73090 ×2; 73100; 96372; 99285; J1885; J3490; 96374

== ENCOUNTER → 2022-03-14 | Outpatient (CLI) | payer OTHER ==
[~2022-03-14] MED LIST changes: -FENT100PAT TD; -HYDR15SO7 PO; -LEVO750T46 PO; -PRAM0.5T3 PO; +TIZA-211 PO; -TIZA4TAB5 PO
== END | disposition home or self-care (01) ==
LOC: DTH 09:20
PROVIDERS: ATTEND Surgery
DX: E78.01 Familial hypercholesterolemia (principal)
CPT/HCPCS: 97803

== ENCOUNTER 2022-04-10 06:31 | Day surgery (SDC) | payer MEDICARE ==
[~2022-04-10] VITALS: Ht 157.5 cm; Wt 104.3 kg
[~2022-04-10 06:31] MED LIST changes: -IBUP-2070 PO; -LORA1TAB3 PO; +SODIUM TETRADECYL SULFATE 30 MG/ML VIAL IV SCH
[2022-04-10] MEDS ORDERED: 0.9%NACL 1000ML 1,000 ML IV ONE (06:56)
[2022-04-10 07:31] VITALS: BP 119/69
[2022-04-10] MEDS ORDERED: LIDOCAINE PF 100MG/5ML (2%) SYRINGE 5ML ONE (08:28)
[2022-04-10] MEDS ORDERED: PROPOFOL 10 MG/ML 20ML VIAL IV ONE (08:28)
[2022-04-10 08:40] VITALS: BP 135/82
[2022-04-10 08:45] VITALS: BP 118/82
[2022-04-10 08:50] VITALS: BP 144/93
[2022-04-10 08:55] VITALS: BP 157/89
[2022-04-10 09:07] VITALS: BP 105/88
== END 2022-04-10 09:19 | disposition home or self-care (01) ==
LOC: DAH 06:31 → ENDO 06:31
PROVIDERS: ATTEND Surgery
DX: R13.10 Dysphagia, unspecified (principal); K21.9 Gastro-esophageal reflux disease without esophagitis; E11.9 Type 2 diabetes mellitus without complications; E78.00 Pure hypercholesterolemia, unspecified; Z90.49 Acquired absence of other specified parts of digestive tract; Z98.84 Bariatric surgery status; E23.2 Diabetes insipidus; Z79.899 Other long term (current) drug therapy; Z20.822 Contact with and (suspected) exposure to COVID-19
CPT/HCPCS: 43236; 82948; 87635; A4215 ×2; A4216; A4221; A4222; A4223; A4606; A4620; A4657; A4663; C9803; J2001; J2704; J3490; J7030

== ENCOUNTER 2022-05-15 06:25 | Day surgery (SDC) | payer MEDICARE ==
[2022-05-15] VITALS (12 sets, daily range): BP systolic 103–149; BP diastolic 63–93
[~2022-05-15] VITALS: Ht 157.5 cm; Wt 104.3 kg
[~2022-05-15 06:25] MED LIST changes: -SODIUM TETRADECYL SULFATE 30 MG/ML VIAL IV SCH
[2022-05-15] MEDS ORDERED: 0.9%NACL 1000ML 1,000 ML IV ONE (07:39)
[2022-05-15] MEDS ORDERED: SUCCINYLCHOLINE 200MG/10ML SYR ONE (07:44)
[2022-05-15] MEDS ORDERED: GLYCOPYRROLATE 1 MG/5 ML SYRINGE ONE (07:44)
[2022-05-15] MEDS ORDERED: PROPOFOL 10 MG/ML 20ML VIAL IV ONE ×2 (07:44→08:38)
[2022-05-15] MEDS ORDERED: SODIUM TETRADECYL SULFATE 30 MG/ML VIAL IV SCH (08:30)
== END 2022-05-15 09:55 | disposition home or self-care (01) ==
LOC: SUH 06:25 → DAH 06:25 → SUH 09:55
PROVIDERS: ATTEND Surgery
DX: R13.10 Dysphagia, unspecified (principal); E66.9 Obesity, unspecified; K31.7 Polyp of stomach and duodenum; E11.9 Type 2 diabetes mellitus without complications; E78.00 Pure hypercholesterolemia, unspecified; Z90.49 Acquired absence of other specified parts of digestive tract; Z98.84 Bariatric surgery status; Z82.49 Family history of ischemic heart disease and other diseases of the circulatory system; Z83.3 Family history of diabetes mellitus; Z80.9 Family history of malignant neoplasm, unspecified; Z68.41 Body mass index [BMI] 40.0-44.9, adult; Z98.890 Other specified postprocedural states; Z98.51 Tubal ligation status
CPT/HCPCS: 87426; 43236; J0330; J3490 ×3; J7030; J2704 ×2; A4620; A4215 ×2; A4223; A4222; A4221; A4663

== ENCOUNTER 2022-06-26 06:59 | Day surgery (SDC) | payer MEDICARE ==
[~2022-06-26] VITALS: Ht 157.5 cm; Wt 97.5 kg
[2022-06-26 08:11] VITALS: BP 112/69
[2022-06-26] MEDS ORDERED: SODIUM TETRADECYL SULFATE 30 MG/ML 2 ML VIAL IV ONE (09:00)
[2022-06-26] MEDS ORDERED: PROPOFOL 10 MG/ML 20ML VIAL IV ONE (09:41)
[2022-06-26 09:57] VITALS: BP 116/70
== END 2022-06-26 10:45 | disposition home or self-care (01) ==
LOC: DAH 06:59
PROVIDERS: ATTEND Surgery
DX: T18.2XXA Foreign body in stomach, initial encounter (principal); K21.9 Gastro-esophageal reflux disease without esophagitis; K31.7 Polyp of stomach and duodenum; E11.43 Type 2 diabetes mellitus with diabetic autonomic (poly)neuropathy; K31.84 Gastroparesis; I10 Essential (primary) hypertension; E78.00 Pure hypercholesterolemia, unspecified; Z79.899 Other long term (current) drug therapy; Z79.01 Long term (current) use of anticoagulants; Z98.84 Bariatric surgery status; Z90.49 Acquired absence of other specified parts of digestive tract; Z98.51 Tubal ligation status; Z82.49 Family history of ischemic heart disease and other diseases of the circulatory system; Z83.3 Family history of diabetes mellitus; Z80.9 Family history of malignant neoplasm, unspecified; X58.XXXA Exposure to other specified factors, initial encounter
CPT/HCPCS: 87426; 43237; J2704; J3490; A4215; A4223; A4222; A4221; A4663; A4606; 43235; 43236

== ENCOUNTER 2022-08-14 17:17 | Emergency (ER) | payer MEDICARE ==
[~2022-08-14] VITALS: Ht 157.5 cm; Wt 90.7 kg
[2022-08-14] MEDS ORDERED: IBUP-1493 PO (18:37)
[2022-08-14] MEDS ORDERED: KETOROLAC 60 MG VIAL (30MG/ML) IM ONE (19:00)
[2022-08-14 20:09] VITALS: BP 125/67
== END 2022-08-14 20:11 | disposition home or self-care (01) ==
LOC: EDH 17:17
DX: M94.0 Chondrocostal junction syndrome [Tietze] (principal); E78.00 Pure hypercholesterolemia, unspecified; Z90.49 Acquired absence of other specified parts of digestive tract
CPT/HCPCS: 99283; 71100; 96372; J1885

== ENCOUNTER 2023-08-16 17:44 | Observation (INO) | payer OTHER, MEDICARE ==
[~2023-08-16] VITALS: Ht 157.5 cm; Wt 83.9 kg
[~2023-08-16 17:44] MED LIST changes: +IBUP-1493 PO
[2023-08-16 18:14] LABS: BASOPHILS # (AUTO) 0.02 K/uL (0.00-0.20); BASOPHILS % (AUTO) 0.3 % (0.0-5.0); EOSINOPHILS # (AUTO) 0.05 K/uL (0.00-0.70); EOSINOPHILS % (AUTO) 0.8 % (0.0-8.0); HEMATOCRIT 33.1 % (36-48); IMMATURE GRANULOCYTE ABSOLUTE 0.05 K/uL (0-1); LYMPHOCYTES # (AUTO) 0.8 K/uL (1.0-4.8); LYMPHOCYTES % (AUTO) 13.1 % (21.0-51.0); MEAN CORPUSCULAR HEMOGLOBIN 32.7 pg (27.0-33.0); MEAN CORPUSCULAR HGB CONC 33.8 g/dL (32.0-36.0); MEAN CORPUSCULAR VOLUME 96.5 fL (79-99); MONOCYTES # (AUTO) 0.5 K/uL (0.1-1.0); NEUTROPHILS # (AUTO) 4.6 K/uL (1.8-7.7); PLATELET COUNT (AUTO) 186 K/uL (130-400); RED BLOOD CELL COUNT(AUTO) 3.43 MIL/uL (4.00-5.50); RED CELL DISTRIBUTION WIDTH 15.9 % (11.0-15.5)
[2023-08-16 18:15] LABS: BILIRUBIN,URINE NEGATIVE (NEGATIVE); COLOR,URINE LIGHT-YELLOW (YELLOW); GLUCOSE, URINE (UA) NEGATIVE (NEGATIVE); KETONES,URINE NEGATIVE (NEGATIVE); LEUKOCYTE ESTERASE ,URINE 500 Leu/uL (NEGATIVE); NITRATE,URINE NEGATIVE (NEGATIVE); OCCULT BLOOD,URINE NEGATIVE (NEGATIVE); PROTEIN,URINE 30 mg/dL (NEGATIVE); UROBILINOGEN,URINE 0.2 mg/dL (0.2-1.0)
[2023-08-16 18:17] LABS: ADD UA MICROSCOPIC YES; APPEARANCE,URINE HAZY (CLEAR)
[2023-08-16 18:19] LABS: BACTERIA,URINE RARE /HPF (None Seen); RBC,URINE 0-1 /HPF (0-1); SQUAMOUS EPITHELIAL CELL,UR FEW /HPF (0-2); WBC,URINE 51-100 /HPF (0-1)
[2023-08-16 18:29] LABS: CREATININE 1.1 mg/dL (0.5-1.5); POTASSIUM 3.1 mmol/L (3.5-5.1)
[2023-08-16 18:39] LABS: ALBUMIN 2.4 g/dL (3.5-5.0); BILIRUBIN,TOTAL 0.7 mg/dL (0.2-1.0)
[2023-08-16] MEDS ORDERED: ONDANSETRON 4MG INJ IVP ONE (19:00)
[2023-08-16] MEDS ORDERED: KETOROLAC 30MG VIAL (30MG/ML) IVP ONE (19:00)
[2023-08-16] MEDS ORDERED: 0.9%NACL 1000ML 1,000 ML IV ONE (19:00)
[2023-08-16] MEDS ORDERED: IOHEXOL 350 MG/ML 100ML INFUS..BTL IV ONE (19:28)
[2023-08-16] MEDS ORDERED: KETOROLAC 60 MG VIAL (30MG/ML) IM ONE (20:06)
[2023-08-16] MEDS ORDERED: DiphenhydrAMINE HCL 50 MG/ML VIAL IV PRN (22:00)
[2023-08-16] MEDS ORDERED: ZOLPIDEM TARTRATE 5 MG TAB PO PRN (22:00)
[2023-08-16] MEDS ORDERED: ALBUTEROL 0.083% 2.5 MG/3 ML INH IH PRN (22:00)
[2023-08-16] MEDS ORDERED: ACETAMINOPHEN 325 MG TAB PO PRN ×2 (22:00)
[2023-08-16] MEDS ORDERED: ALPRAZOLAM 0.5 MG TABLET PO PRN (22:00)
[2023-08-16] MEDS ORDERED: LACTULOSE 20 GM/30 ML UDCUP PO PRN (22:00)
[2023-08-16] MEDS ORDERED: LOPERAMIDE HCL 2 MG CAP PO PRN (22:00)
[2023-08-16] MEDS ORDERED: CEFTRIAXONE 2GM VIAL IVPB SCH (22:00)
[2023-08-16] MEDS ORDERED: GUAIFENESIN SUGAR-FREE 100 MG/5 ML UDCUP PO PRN (22:00)
[2023-08-16] MEDS ORDERED: ONDANSETRON 4MG INJ IV PRN (22:00)
[2023-08-16] MEDS ORDERED: DOCUSATE SODIUM 100 MG CAP PO PRN (22:00)
[2023-08-16] MEDS ORDERED: POLYETHYLENE GLYCOL 3350 17 GM POWD.PACK PO PRN (22:00)
[2023-08-16] MEDS ORDERED: MAG/ALUM/SIMETH 30 ML UDCUP PO PRN (22:00)
[2023-08-16 22:09] VITALS: BP 119/72; PULSE 88; RESP 18; O2SAT 98
[2023-08-17] MEDS ORDERED: FAMOTIDINE 20MG VIAL IV SCH (09:00)
[2023-08-21 05:13] LABS: HEPATITIS A ANTIBODY IGM Negative (Negative); HEPATITIS B CORE IGM Negative (Negative); HEPATITIS Bs ANTIGEN SCREEN P Negative (Negative); HEPATITIS C VIRUS ANTIBODY Non Reactive (Non Reactive)
== END 2023-08-16 22:30 | disposition left against medical advice (07) ==
LOC: EDH 17:44 → EDHIP 21:39
PROVIDERS: ADMIT Internal Medicine Critical Care Medicine; ATTEND Internal Medicine Critical Care Medicine
DX: R10.9 Unspecified abdominal pain (principal); R74.01 Elevation of levels of liver transaminase levels; N39.0 Urinary tract infection, site not specified; A01.03 Typhoid pneumonia; E78.00 Pure hypercholesterolemia, unspecified; E03.9 Hypothyroidism, unspecified; R11.0 Nausea; M54.9 Dorsalgia, unspecified; R51.9 Headache, unspecified; M79.7 Fibromyalgia; Z87.442 Personal history of urinary calculi; Z90.49 Acquired absence of other specified parts of digestive tract; Z79.899 Other long term (current) drug therapy; Z98.890 Other specified postprocedural states
CPT/HCPCS: 99285; 74177; 96374; 76770; 96375; 80053; 85025; 87040 ×2; 87077; 87088 ×2; 87186; 87340; 86705; 86709; 81001; 36415; G0378; J7030; J2405; J1885; Q9967; 80074

== ENCOUNTER 2023-08-19 08:36 | Emergency (ER) | payer OTHER, MEDICARE ==
[~2023-08-19] VITALS: Ht 157.5 cm; Wt 83.9 kg
[2023-08-19 09:24] LABS: BASOPHILS # (AUTO) 0.01 K/uL (0.00-0.20); BASOPHILS % (AUTO) 0.2 % (0.0-5.0); EOSINOPHILS # (AUTO) 0.02 K/uL (0.00-0.70); EOSINOPHILS % (AUTO) 0.4 % (0.0-8.0); IMMATURE GRANULOCYTE ABSOLUTE 0.04 K/uL (0-1); LYMPHOCYTES % (AUTO) 20.1 % (21.0-51.0); MEAN CORPUSCULAR HEMOGLOBIN 32.5 pg (27.0-33.0); MEAN CORPUSCULAR HGB CONC 33.9 g/dL (32.0-36.0); MEAN CORPUSCULAR VOLUME 95.7 fL (79-99); MONOCYTES # (AUTO) 0.5 K/uL (0.1-1.0); MONOCYTES % (AUTO) 10.3 % (3.0-13.0); NEUTROPHILS # (AUTO) 3.5 K/uL (1.8-7.7); NEUTROPHILS % (AUTO) 68.2 % (40.0-77.0); PLATELET COUNT (AUTO) 223 K/uL (130-400); RED BLOOD CELL COUNT(AUTO) 3.45 MIL/uL (4.00-5.50); RED CELL DISTRIBUTION WIDTH 15.5 % (11.0-15.5); WHITE BLOOD COUNT (AUTO) 5.1 K/uL (4.8-10.8)
[2023-08-19 09:39] LABS: ALBUMIN 2.6 g/dL (3.5-5.0); BILIRUBIN,TOTAL 0.8 mg/dL (0.2-1.0); CREATININE 0.7 mg/dL (0.5-1.5); TOTAL PROTEIN, SERUM 7.6 g/dL (6.0-8.3)
[2023-08-19] MEDS ORDERED: POTASSIUM CHLORIDE 20 MEQ/100 ML BAG IV ONE (10:00)
[2023-08-19] MEDS ORDERED: POTASSIUM CHLORIDE 10% ELIXIR 20 MEQ/15 ML UDCUP PO ONE (10:00)
[2023-08-19] MEDS ORDERED: ONDANSETRON 4MG INJ IVP ONE (10:00)
[2023-08-19] MEDS ORDERED: POTASSIUM CHLORIDE 20MEQ/100ML 100 ML IV PRN (10:30)
[2023-08-19] MEDS ORDERED: POTASSIUM CHLORIDE 10% ELIXIR 20 MEQ/15 ML UDCUP PO PRN (10:30)
[2023-08-19] MEDS ORDERED: KCL 20 MEQ ERTAB PO PRN (10:30)
[2023-08-19] MEDS ORDERED: ONDANSETRON ODT 4MG TAB SL ONE (13:00)
[2023-08-19] MEDS ORDERED: KETOROLAC 30MG VIAL (30MG/ML) IVP ONE (13:00)
[2023-08-19] MEDS ORDERED: KETOROLAC 15MG/ML VIAL (15MG/ML) ONE (13:06)
[2023-08-19 13:12] LABS: APPEARANCE,URINE CLEAR (CLEAR); BILIRUBIN,URINE NEGATIVE (NEGATIVE); COLOR,URINE DARK-YELLOW (YELLOW); GLUCOSE, URINE (UA) NEGATIVE (NEGATIVE); KETONES,URINE 20 mg/dL (NEGATIVE); LEUKOCYTE ESTERASE ,URINE NEGATIVE Leu/uL (NEGATIVE); NITRATE,URINE NEGATIVE (NEGATIVE); OCCULT BLOOD,URINE NEGATIVE (NEGATIVE); PH,URINE 6.5 (5.0-8.0); PROTEIN,URINE NEGATIVE (NEGATIVE); UROBILINOGEN,URINE 0.2 mg/dL (0.2-1.0)
[2023-08-19 13:22] LABS: ADD UA MICROSCOPIC YES
[2023-08-19 13:24] LABS: BACTERIA,URINE RARE /HPF (None Seen); RBC,URINE 0-1 /HPF (0-1); SQUAMOUS EPITHELIAL CELL,UR FEW /HPF (0-2)
[2023-08-19] MEDS ORDERED: LACTATED RINGERS 1000ML 1,000 ML IV ONE (13:30)
[2023-08-19] MEDS ORDERED: IBUP-2071 PO (14:42)
[2023-08-19] MEDS ORDERED: POTA-364 PO (14:45)
[2023-08-19] MEDS ORDERED: ONDA22I PO (14:45)
[2023-08-19 15:34] VITALS: BP 141/81; PULSE 68; RESP 18; O2SAT 98
== END 2023-08-19 15:33 | disposition home or self-care (01) ==
LOC: EDH 08:36
DX: N13.30 Unspecified hydronephrosis (principal); M54.50 Low back pain, unspecified; R74.01 Elevation of levels of liver transaminase levels; F10.10 Alcohol abuse, uncomplicated; F14.10 Cocaine abuse, uncomplicated; M79.7 Fibromyalgia; E78.00 Pure hypercholesterolemia, unspecified; E03.9 Hypothyroidism, unspecified; E87.6 Hypokalemia; Z90.49 Acquired absence of other specified parts of digestive tract; Z90.710 Acquired absence of both cervix and uterus
CPT/HCPCS: 99285; 74176; 96374; 96361; 96375; 84132; 80053; 85025; 81001; 36415; 93005; J2405; J1885; J3480